=== PATIENT | male | born 1945 | race Caucasian/White ===

== ENCOUNTER 2016-07-08 12:49 | Emergency (ER) | payer SELFPAY ==
[~2016-07-08] VITALS: Ht 180.3 cm; Wt 105.9 kg
[2016-07-08] MEDS ORDERED: ASPI-621 PO (13:38)
[2016-07-08] MEDS ORDERED: CARV12.52 PO (13:38)
[2016-07-08] MEDS ORDERED: ATOR40TA78 PO (13:42)
[2016-07-08 14:32] LABS: ASPARTATE AMINO TRANSFERASE 11 U/L (15-37); BLOOD UREA NITROGEN 16 mg/dL (7-18)
[2016-07-08 16:05] VITALS: BP 133/86
== END 2016-07-08 16:07 | disposition home or self-care (01) ==
LOC: ED 14:04
DX: I10 Essential (primary) hypertension (principal); Z76.0 Encounter for issue of repeat prescription
CPT/HCPCS: 36415; 71010; 80053; 83880; 85025; 93005; 99285